=== PATIENT | female | born 1955 | race Caucasian/White ===

== ENCOUNTER 2017-10-27 13:03 | Outpatient (CLI) | END 2017-10-27 13:04 | disposition home or self-care (01) | LOC: LAB 13:03 | PROVIDERS: ATTEND Nurse Practitioner Family | DX: J02.9 Acute pharyngitis, unspecified (principal); R50.9 Fever, unspecified; R68.89 Other general symptoms and signs | CPT/HCPCS: 87651; 87804 ==

== ENCOUNTER 2019-01-26 08:29 | Outpatient (CLI) | END 2019-01-26 08:30 | disposition home or self-care (01) | LOC: RAD 08:29 | PROVIDERS: ATTEND Nurse Practitioner Family | DX: Z12.31 Encounter for screening mammogram for malignant neoplasm of breast (principal) ==

== ENCOUNTER 2019-02-19 15:08 | Emergency (ER) ==
[2019-02-19 15:12] VITALS: BMI 29.9
[2019-02-19] MEDS ORDERED: DUONEB NEB STA (15:45)
[2019-02-19] MEDS ORDERED: PULMICORT 0.5 MG/2 ML NEB STA (15:45)
--- NOTE | 2019-02-19 15:45 | ED.PDOC ---
General ED Provider: Dr. LAVERNE AC Chief Complaint: Respiratory Complaint Stated Complaint: c/o severe cough that is productiov of light yellow phlegm. H. as nasal congestion that is clear has experienced low grade temperature . Time Seen by Physician: 15:35 Mode of Arrival: Walk-In Information Source: Patient Primary Care Provider: DELFIN GUTIERREZ Nursing and Triage Documentation Reviewed and Agree: Yes Does patient meet sepsis criteria?: No System Inflammatory Response Syndrome: Not Applicable Sepsis Protocol: For patient's 13 years and over: Temp is 96.8 and below OR 101 and greater Pulse >90 BPM Resp >20/minute Acutely Altered Mental Status Are patient's symptoms suggestive of a new infection, such as: -Pneumonia -Skin, Soft Tissue -Endocarditis -UTI -Bone, Joint Infection -Implantable Device -Acute Abdominal Infection -Wound Infection -Meningitis -Blood Stream Catheter Infection -Unknown Respiratory Complaint Exam - Shortness of Air Complaint/Exam Onset/Duration: earlier in week Symptoms Are: Still present Timing: Intermittent Initial Severity: Moderate Current Severity: Moderate Character: Reports: Dyspnea on exertion Aggravating: Reports: Smoke exposure Alleviating: Reports: None Associated Signs and Symptoms: Reports: Cough, Wheezing. Denies: Chest pain with cough, Chest pain, Fever, Chills, Diaphoresis, Nasal congestion, Dizziness , Calf pain, Calf swelling, Edema, Rapid breathing, Labored breathing, Decreased intake Related History: Reports: Similar episode History of Healthcare-Acquired Pneumonia: No Pulmonary Embolism Risk Factors: Reports: None Cardiac Risk Factors: Reports: None Pseudomonas Risk Factors: Reports: None Tuberculosis Risk Factors: Reports: None Home Oxygen Use: No Recent Stress Test: No Recent Echo/LV Function: No Respiratory Distress: Mild Stridor Present: No Tracheal Deviation: No Subcutaneous Emphysema: No Accessory Muscle Use: No Diminished Breath Sounds: Yes Prolonged Expiratory Phase: Yes Unable to Speak Full Sentences: No Fatigue: No Leg Swelling: No Mile's Sign Present: No Grunting Respirations: No Kussmaul Respirations: No Differential Diagnoses: Bronchitis, Bronchospasm Related Surgical History: Reports: None Review of Systems - Review Of Systems Constitutional: Reports: No symptoms Eyes: Reports: No symptoms Ears, Nose, Mouth, Throat: Reports: No symptoms Respiratory: Reports: Cough, Short of air, Wheezing Cardiac: Reports: No symptoms GI: Reports: No symptoms : Reports: No symptoms Musculoskeletal: Reports: No symptoms Skin: Reports: No symptoms Neurological: Reports: No symptoms Endocrine: Reports: No symptoms Hematologic/Lymphatic: Reports: No symptoms All Other Systems: Reviewed and Negative Past Medical History - Past Medical History Previously Healthy: Yes Endocrine: Reports: Dyslipidemia Cardiovascular: Reports: Hypertension Respiratory: Reports: Bronchitis Hematological: Reports: None Gastrointestinal: Reports: None Genitourinary: Reports: None Neuro/Psych: Reports: None Musculoskeletal: Reports: None Cancer: Reports: None Last Menstrual Period: n/a - Surgical History General Surgical History: Reports: None - Family History Family History: Reports: None - Social History Smoking Status: Current every day smoker Hx Substance Use: No Alcohol Screening: None Physical Exam - Physical Exam Appearance: Well-appearing Ill-appearing: Mild Pain Distress: None Eyes: LEONARD, EOMI, Conjunctiva clear ENT: Ears normal, Nose normal, Oropharynx normal Neck: Supple Respiratory: Airway patent, Breath sounds diminished, Respirations nonlabored, Airway obstructed, Wheezes Critical Care Note - Critical Care Note Total Time (mins): 60 Course - Course Hematology/Chemistry: 02/19/19 15:57 02/19/19 15:57 Orders, Labs, Meds: Lab Review 02/19/19 02/19/19 02/19/19 15:57 15:57 16:00 WBC 3.18 L RBC 3.94 L Hgb 12.4 Hct 37.8 MCV 95.9 MCH 31.5 H MCHC 32.8 RDW Coeff of Gloria 12.2 Plt Count 178 Immature Gran % (Auto) 0.0 Neut % (Auto) 50.6 Lymph % (Auto) 34.3 Bowie % (Auto) 12.9 H Eos % (Auto) 1.3 Baso % (Auto) 0.9 Immature Gran # (Auto) 0.0 Neut # (Auto) 1.6 L Lymph # (Auto) 1.1 Bowie # (Auto) 0.4 Eos # (Auto) 0.0 Baso # (Auto) 0.0 Sodium 137.3 Potassium 4.02 Chloride 105.0 Carbon Dioxide 23.2 Anion Gap 13.12 BUN 14.3 Creatinine 0.72 Estimated GFR (MDRD) 82.00 BUN/Creatinine Ratio 19.86 Glucose 104.1 Calcium 9.53 Total Bilirubin 0.38 AST 29.6 ALT 22.8 Alkaline Phosphatase 88.2 Total Protein 7.10 Albumin 4.52 Globulin 2.58 Albumin/Globulin Ratio 1.75 Influ A Molecular Assay Negative by naat Influ B Molecular Assay Negative by naat Orders Category Date Time Status EKG-(ED ONLY) Stat CARDIO 02/19/19 15:46 Completed NEBULIZER TREATMENT Stat CARDIO 02/19/19 15:45 Completed NEBULIZER TREATMENT Stat CARDIO 02/19/19 15:45 Completed PEAK FLOW Routine CARDIO 02/19/19 15:55 Completed CBC W/ AUTO DIFF Stat LAB 02/19/19 15:57 Completed CMP [COMPREHENSIVE METABOLIC PANEL] Stat LAB 02/19/19 15:57 Completed FLU A & B MOLECULAR [FLU A/B MOLECULAR] Stat LAB 02/19/19 16:00 Completed RAPID STREP SCREEN [MOLECULAR GROUP A STREP] Stat LAB 02/19/19 16:00 Completed SPUTUM CULTURE Stat LAB 02/19/19 16:20 Received Budesonide [Pulmicort 0.5 mg/2 ml] MEDS 02/19/19 15:45 Discontinued 1 vial NEB ONCE STA Ipratropium/Albuterol Neb [Duoneb] MEDS 02/19/19 15:45 Discontinued 1 vial NEB ONCE STA Methylprednisolone Sod Succ/Pf [Solu-Medrol 125 mg] MEDS 02/19/19 17:20 Discontinued 125 mg IM ONCE STA CHEST, 2 VIEWS PA & LAT Stat RADS 02/19/19 15:46 Completed Medications Discontinued Medications Generic Name Dose Route Start Last Admin Trade Name Freq PRN Reason Stop Dose Admin Albuterol/Ipratropium 1 vial 02/19/19 15:45 02/19/19 16:05 Duoneb NEB 02/19/19 15:46 1 vial ONCE STA Administration Budesonide 1 vial 02/19/19 15:45 02/19/19 16:29 Pulmicort 0.5 Mg/2 Ml NEB 02/19/19 15:46 1 vial ONCE STA Administration Methylprednisolone Sodium Succinate 125 mg 02/19/19 17:20 02/19/19 17:33 Solu-Medrol 125 Mg IM 02/19/19 17:21 125 mg ONCE STA Administration Vital Signs: Temp Pulse Resp BP Pulse Ox 02/19/19 17:21 98.7 F 78 18 139/61 95 02/19/19 15:08 99.2 F 91 H 20 119/79 94 L Departure - Departure Time of Disposition: 17:15 Disposition: HOME SELF-CARE Discharge Problem: Acute bronchitis Instructions: Acute Bronchitis (ED) Condition: Fair Pt referred to PMD for follow-up: Yes (See in 1 week) IPMP verified?: No Additional Instructions: Avoid SMOKE Use meds as directed See PCP this WEEK -devon Pul Function Test with PCP Prescriptions: Amoxicillin/Potassium Clav [Augmentin 875-125 mg Tab] 1 tab PO Q12HR #20 tablet Albuterol Sulfate [Proventil Hfa] 2 puff IH QID PRN #1 hfa.aer.ad PRN Reason: wheezing and congestion /SOB Guaifenesin [Mucinex] 600 mg PO BID #20 tab.er.12h Prednisone 10 mg PO DAILY #18 tablet Allergies/Adverse Reactions: Allergies No Known Allergies Allergy (Verified 02/19/19 15:12) Home Medications: Ambulatory Orders Atorvastatin Calcium [Lipitor] 10 mg PO DAILY 10/27/17 Citalopram Hydrobromide [Celexa] 10 mg PO DAILY 10/27/17 Lisinopril 10 mg PO DAILY 10/27/17 Pramipexole Di-HCl [Pramipexole Dihydrochloride] 0.25 mg PO DAILY 10/27/17 Albuterol Sulfate [Proventil Hfa] 2 puff IH QID PRN #1 hfa.aer.ad 02/19/19 Amoxicillin/Potassium Clav [Augmentin 875-125 mg Tab] 1 tab PO Q12HR #20 tablet 02/19/19 Guaifenesin [Mucinex] 600 mg PO BID #20 tab.er.12h 02/19/19 Prednisone 10 mg PO DAILY #18 tablet 02/19/19 Disposition Discussed With: Patient
--- NOTE | 2019-02-19 16:45 | DI ---
EXAM: Two views of the chest. History: Cough. Findings: Heart size is within normal limits. No focal consolidation. No appreciable pleural fluid and no pneumothorax. No acute osseous abnormalities. Calcified granulomas seen within the right mac ng. Atherosclerotic vascular calcifications. Impression: No acute cardiopulmonary process
[2019-02-19] MEDS ORDERED: SOLU-MEDROL 125 MG IM STA (17:20)
[2019-02-19 17:22] VITALS: BP 139/61; TEMP 98.7
== END 2019-02-19 17:47 | disposition home or self-care (01) ==
LOC: ED 15:08
DX: J20.9 Acute bronchitis, unspecified (principal); F17.210 Nicotine dependence, cigarettes, uncomplicated; E78.5 Hyperlipidemia, unspecified; I10 Essential (primary) hypertension; Z79.899 Other long term (current) drug therapy
CPT/HCPCS: 36415; 80053; 85025; 87070; 87186; 87502; 87651; 93005; 93010; 94250; 94640; 96372; 99283